=== PATIENT | female | born 1985 | race Caucasian/White ===

== ENCOUNTER 2022-07-04 09:46 | Emergency (ER) | payer SELFPAY ==
--- NOTE | ~2022-07-04 | CT_ITS ---
EXAMINATION: CTA chest PE protocol DATE: 07/04/2022 11:55 INDICATION: Shortness of breath and cough TECHNIQUE: Computed tomography angiography (CTA) of the chest was performed with 100 mL Omnipaque-350 intravenous contrast timed to evaluate the pulmonary arteries. Coronal maximum intensity projection 3D-reconstructions were created by the technologist. The dose-length product (DLP) was 1078.62 mGy-cm . Automated exposure control and iterative reconstruction technique were employed. COMPARISON: None. FINDINGS: There is moderate opacification of the pulmonary arteries. No pulmonary embolus is identifi ed. The lungs are free of acute opacities. No pleural effusion or pneumothorax. Scattered small nodul es of the lungs measuring up to 3 mm likely reflect old granulomatous disease. No pathologically enla rged thoracic lymph nodes are identified. The heart size is normal. A small subcapsular calcification of the liver may reflect prior trauma. There is mild thoracic spondylosis. IMPRESSION: 1. No pulmonary embolism or acute cardiopulmonary abnormality. Reviewed, dictated and finalized at location B.
--- NOTE | ~2022-07-04 | XR_ITS ---
EXAMINATION: XR chest 2V DATE: 07/04/2022 10:16 INDICATION: Shortness of breath and cough TECHNIQUE: PA and lateral views of the chest are obtained. COMPARISON: None available FINDINGS: The lungs are free of acute opacities. No pleural effusion or pneumothorax. The cardiomedia stinal silhouette is normal. The visualized bones and soft tissues are unremarkable. IMPRESSION: 1. No acute cardiopulmonary abnormality. Reviewed, dictated and finalized at location B.
--- NOTE | 2022-07-04 09:52 | ECG_ITS ---
Measurements Intervals Athena Rate: 96 P: 47 MD: 136 QRS: 19 QRSD: 93 T: 3 QT: 373 QTc: 473 Interpretive Statements SINUS RHYTHM MINIMAL ST DEPRESSION [0.025+ mV ST DEPRESSION] NO PREVIOUS ECG AVAILABLE FOR COMPARISON Electronically Signed On 07-04-2022 11:05:47 CDT by Stepan Kebede M.D.
[2022-07-04 10:01] VITALS: BP 129/79; PULSE 88; RESP 23; TEMP 37; O2SAT 99
[2022-07-04 10:06] VITALS: O2SAT 99
[2022-07-04 10:11] LABS: Basophils Absolute Auto 0.1 K/mm3 (0.0-0.1); Basophils Percent Auto 0.9 % (0.2-1.2); Eosinophils Absolute Auto 0.3 K/mm3 (0-0.3); Eosinophils Percent Auto 3.9 % (0-4.4); Hematocrit 44.4 % (37.0-47.0); Hemoglobin 14.7 g/dL (12.0-15.0); Immature Granulocyte Absolute 0.02 K/mm3 (0.00-0.031); Immature Granulocyte Percent A 0.3 % (0-0.5); Lymphocytes Absolute Auto 2.63 K/mm3 (0.9-3.2); Lymphocytes Percent Auto 37.9 % (18.3-44.2); Mean Corpuscular HGB Conc 33.1 g/dl (32-36); Mean Corpuscular Hemoglobin 31.5 pg (26-34); Mean Corpuscular Volume 95.1 fl (80-100); Mean Platelet Volume 11.6 fl (7.4-10.4); Monocytes Absolute Auto 0.4 K/mm3 (0.1-0.6); Monocytes Percent Auto 5.5 % (2.6-8.5); Neutrophils Absolute Auto 3.6 K/mm3 (1.3-6.7); Neutrophils Percent Auto 51.5 % (45.5-73.1); Platelet Count Result 289 k/mm3 (150-375); Red Blood Count 4.67 M/mm3 (4.2-5.4); Red Cell Distribution Width 12.9 % (11.5-14.5); White Blood Count 6.9 K/mm3 (4.5-10.0)
[2022-07-04 10:26] LABS: Alanine Aminotransferase 19 U/L (6-35); Albumin Level 4.7 g/dL (3.5-5.1); Alkaline Phosphatase 60 U/L (38-126); Anion Gap 7 mmol/L (8-16); Aspartate Amino Transferase 21 U/L (14-36); Bilirubin,Total 0.7 mg/dL (0.2-1.3); Blood Urea Nitrogen 11 mg/dL (7-17); Calcium 9.1 mg/dL (8.4-10.2); Carbon Dioxide 29 mmol/L (22-30); Chloride 106 mmol/L (98-107); Estimated CRCL calculation 129 ml/min; Estimated Glomerular Filt Rate > 60; Glucose 127 mg/dL (65-110); Potassium 4.1 mmol/L (3.4-5.0); Sodium 142 mmol/L (137-145)
[2022-07-04 10:38] LABS: Strep Group A RT-PCR DETECTED (Negative)
--- NOTE | 2022-07-04 10:49 | ED.SOB ---
HPI - SOB/Dyspnea General Chief Complaint: Shortness of Breath/Dyspnea Stated Complaint: URI Time Seen by Provider: 07/04/22 10:38 History of Present Illness HPI Narrative: 36-year-old female reports for evaluation of cough, sore throat and dyspnea for 1 week. Patient reports subjective fevers, however has not taken her temperature, denies body aches and chills. Reports the sore throat is intermittent, rates the pain right now 1 out of 10. States the dyspnea only occurs after coughing fits and extensive movement. She denies chest pain, abdominal pain, nausea, vomiting, diarrhea, urinary complaints, ear pain. Reports nasal congestion that was worse a couple of days ago but has since improved. Denies leg swelling or calf pain, history of VTE, hemoptysis, hormone use. Pt endorses smoking 0.5-1 ppd for 20 years. Related Data Allergies Allergy/AdvReac Type Severity Reaction Status Date / Time ondansetron [From Zofran] AdvReac Itching Verified 07/04/22 10:06 Review of Systems Review of Systems: CONSTITUTIONAL: Denies fever, chills EYES: Denies visual changes, redness, or discharge. ENT: See HPI CARDIOVASCULAR: Denies chest pain, palpitations, or edema. RESPIRATORY: See HPI GASTROINTESTINAL: Denies abdominal pain, nausea, vomiting, or diarrhea. GENITOURINARY: Denies dysuria or hematuria. SKIN: Denies rash or itching. MUSCULOSKELETAL: Denies back pain, joint pain, or myalgia. NEUROLOGIC: Denies headache, numbness, dizziness, or weakness. PSYCHIATRIC: Denies anxiety or depression. Exam Narrative: GENERAL: Well-appearing, well-nourished, and in no acute distress. Patient resting comfortably in exam bed. She is pleasant and conversational. Speaking in full sentences. HEAD: Normocephalic, atraumatic. EYES: PERRLA and EOMI. ENT: Nares clear, no rhinorrhea or epistaxis. Mucous membranes moist. Posterior oropharynx erythematous and mildly injected. No exudates, uvular or tonsillar hypertrophy. Bilateral TMs pearly meza nonbulging NECK: Supple. CHEST: Clear to auscultation. No respiratory distress. No wheezes rales or rhonchi HEART: Regular rate and rhythm. No murmur heard. Normal peripheral pulses. ABDOMEN: Soft, nontender, nondistended, normal active bowel sounds. EXTREMITIES: Normal range of motion. No edema. Negative Homans bilaterally SKIN: Warm, dry, no rash. NEURO: No focal deficits. Alert and oriented x3. PSYCH: Normal mood and affect. Course Vital Signs Vital signs: Vital Signs Temperature 98.6 F 07/04/22 10:01 Pulse Rate 88 07/04/22 10:01 Respiratory Rate 23 H 07/04/22 10:01 Blood Pressure 129/79 07/04/22 10:01 Pulse Oximetry 99 07/04/22 10:01 Oxygen Delivery Room Air 07/04/22 10:01 Temperature 98.6 F 07/04/22 10:01 Pulse Rate 72 07/04/22 12:50 Respiratory Rate 20 07/04/22 12:50 Blood Pressure 140/61 07/04/22 12:50 Pulse Oximetry 98 07/04/22 12:50 Oxygen Delivery Room Air 07/04/22 10:06 MDM - SOB/Dyspnea MDM Narrative Medical decision making narrative: 36-year-old female reports for evaluation of sore throat, cough and intermittent dyspnea for 1 week. On exam, patient does not appear ill or toxic, she is speaking in full sentences. She is neurovascularly intact. Lung sounds clear. EKG reveals normal sinus rhythm with a rate of 96. There is evidence of nonspecific ST changes, no prior EKG available for comparison. Patient denies chest pain. Troponin negative. CBC without leukocytosis or anemia. Chemistries unremarkable. Magnesium normal. COVID and flu negative. Strep positive. Chest x-ray without acute cardiopulmonary abnormality. CTA chest obtained without evidence of pulmonary embolism or acute cardiopulmonary abnormality. There are scattered small nodules of the lungs measuring up to 3 mm likely reflect old granulomatous disease. Bedside test negative. Patient received a nebulizer treatment and steroids in the ED. Labs and imaging dis
[2022-07-04 10:53] LABS: Influenza A QL RT-PCR Negative (Negative); Influenza B QL RT-PCR Negative (Negative); RSV RNA, RT-PCR Negative (Negative); SARS-CoV-2 RNA PCR Negative (Negative)
[2022-07-04] MEDS: methylPREDNISolone SOD SUCC 125 MG VIAL IV PUSH (10:59)
[2022-07-04 11:05] VITALS: PULSE 60; RESP 18
[2022-07-04] MEDS: IPRATROPIUM BR 0.02% INH SOLN 0.5 MG/2.5 ML VIAL INHALATION (11:05)
[2022-07-04] MEDS: LEVALBUTEROL NEB 1.25 MG/3 ML INHALATION ×3 (11:05→11:25)
[2022-07-04 11:21] VITALS: BP 127/69; PULSE 67; RESP 19; O2SAT 100
[2022-07-04 11:39] VITALS: PULSE 67; RESP 18
[2022-07-04 11:53] LABS: Troponin I < 0.012 ng/mL (0.000-0.034)
[2022-07-04 12:50] VITALS: BP 140/61; PULSE 72; RESP 20; O2SAT 98
== END 2022-07-04 15:00 | disposition home or self-care (01) ==
PROVIDERS: Emergency Medicine; Emergency Provider Physician Assistant
DX: J02.0 Streptococcal pharyngitis (principal); J40 Bronchitis, not specified as acute or chronic; Z20.822 Contact with and (suspected) exposure to COVID-19
CPT/HCPCS: 36415; 71046; 71275; 80053; 81025; 83735; 84484; 85025; 87637; 87651; 93005; 94640; 96374; 99284; J2930; Q9967

== ENCOUNTER 2023-01-23 10:51 | Emergency (ER) | payer SELFPAY ==
--- NOTE | ~2023-01-23 | CT_ITS ---
EXAMINATION: CT lumbar spine wo con DATE: 01/23/2023 12:44 INDICATION: Back pain. TECHNIQUE: Computed tomography (CT) of the lumbar spine was performed without intravenous contrast. A utomated exposure control and iterative reconstruction technique were employed. The dose-length produ ct was 1379.53 mGy-cm. COMPARISON: None FINDINGS: There is 8 degrees levocurvature of lumbar spine. Vertebral body heights are normal. There is mildly decreased disc height at L3-L4 and L4-L5. The following disc levels are specifically discus sed: L1-L2: The disc does not extend beyond the endplate margin. There is mild bilateral facet joint osteo arthritis. There is no neural foraminal stenosis. There is no central canal stenosis. L2-L3: The disc does not extend beyond the endplate margin. There is moderate right and mild left fac et joint osteoarthritis. There is no neural foraminal stenosis. There is no central canal stenosis. L3-L4: The disc is bulging. There is moderate bilateral facet joint osteoarthritis. There is mild figueroa ateral neural foraminal stenosis. There is no central canal stenosis. L4-L5: The disc is bulging. There is moderate right and severe left facet joint osteoarthritis. There is moderate right and mild left neural foraminal stenosis. There is mild central canal stenosis. L5-S1: The disc does not extend beyond the endplate margin. There is severe bilateral facet joint ost eoarthritis. There is mild bilateral neural foraminal stenosis. There is no central canal stenosis. IMPRESSION: 1. Moderate right neural foraminal stenosis at L4-L5. Otherwise mild lumbar spondylosis. Reviewed, dictated and finalized at location A. [employer] IMPRESSION: 1. Moderate right neural foraminal stenosis at L4-L5. Otherwise mild lumbar spo ndylosis.
[2023-01-23 10:59] VITALS: BP 149/80; PULSE 89; RESP 17; TEMP 36.2; O2SAT 100
[2023-01-23 11:45] LABS: Appearance Urine Cloudy (Clear); Bacteria Urine Rare /hpf; Bilirubin Urine Negative (Negative); Blood Urine Negative (Negative); Color Urine Yellow (Yellow); Glucose Urine UA Negative (Negative); Ketones Urine Negative (Negative); Leukocyte Esterase Ur 2+ LEU/UL (Negative); Nitrate Urine Negative (Negative); Non Pathogenic Casts 0-2; Protein Urine Negative (Negative); Specific Grav Ur 1.019 (1.001-1.035); Squamous Epithelial Cell Urine Moderate /hpf (Few); WBC Urine 21-50 /hpf
[2023-01-23 11:51] LABS: Add Urine Microscopic? YES
--- NOTE | 2023-01-23 13:48 | ED.BACK ---
HPI - Back Pain/Injury General Chief Complaint: Back Pain/Injury Stated Complaint: back and figueroa hip pain Time Seen by Provider: 01/23/23 11:37 Source: patient Mode of arrival: ambulatory Limitations: no limitations History of Present Illness HPI Narrative: Their 7-year-old female complains of lower back pain and bilateral hip pain for the last couple of weeks. Patient denies any known injury. Denies any urinary symptoms such as hematuria, urinary frequency, nausea, vomiting, dysuria. Denies any bowel incontinence, bladder incontinence, saddle paresthesia, radiating pain down the leg. Related Data Allergies Allergy/AdvReac Type Severity Reaction Status Date / Time ondansetron [From Zofran] AdvReac Itching Verified 01/23/23 11:17 Review of Systems Review of Systems: All systems reviewed & are unremarkable except as noted in HPI and below Exam Const: General: cooperative, healthy appearing, comfortable, no acute distress and well developed Orientation/consciousness: patient oriented x3 HENMT: Head: normal to inspection Eyes: General: appearance normal, both eyes and all related structures Resp: Effort & Inspection: normal respiratory effort and able to speak in complete sentences Auscultation: clear to auscultation bilaterally Cardio: Rate: regular rate Rhythm: regular rhythm Heart sounds: S1 normal heart sound present and S2 normal heart sound present Back/Spine/Pelvis: Back: no CVA tenderness Cervical Spine: normal cervical lordosis Thoracic/Lumbar Spine: thoracic and lumbar spine normal to inspection and lumbar spinal tenderness at L4 and at L5 Neuro: General: patient oriented x3 Cranial nerves: Yes CN's II-XII intact bilaterally Speech: normal speech Gait exam (Neuro): Normal gait present Motor exam (neuro): 5/5 motor strength present throughout Course Vital Signs Vital signs: Vital Signs Temperature 97.1 F L 01/23/23 10:59 Pulse Rate 89 01/23/23 10:59 Respiratory Rate 17 01/23/23 10:59 Blood Pressure 149/80 H 01/23/23 10:59 Pulse Oximetry 100 01/23/23 10:59 Oxygen Delivery Room Air 01/23/23 10:59 Temperature 97.9 F 01/23/23 14:12 Pulse Rate 68 01/23/23 14:12 Respiratory Rate 16 01/23/23 14:12 Blood Pressure 127/84 01/23/23 14:12 Pulse Oximetry 100 01/23/23 14:12 Oxygen Delivery Room Air 01/23/23 10:59 MDM - Back Pain/Injury MDM Narrative Medical decision making narrative: 37-year-old female age. Noted. Exam noted tenderness to lumbar region more than expected. Patient jumped with a slight touch. CT lumbar spine ordered. Urine shows possible UTI will treat with Macrobid. CT shows some bulging discs and lumbar spondylosis. Reviewed with patient. Plan to follow-up with the primary care provider for further treatment. Will use ibuprofen or Tylenol as needed for pain for the next week. Return precautions discussed Differential Diagnosis Differential diagnosis: Likely strain of lumbar region and other ( Lumbar back pain, UTI) Medical Records Attestation: I reviewed the patient's medical records. Lab Data Labs: Lab Results 01/23/23 Range/Units 11:31 Urine Color Yellow (Yellow) Urine Appearance Cloudy H (Clear) Urine pH 7.0 (5.0-9.0) Ur Specific [place] 1.019 (1.001-1.035) Urine Protein Negative (Negative) mg/dL Urine Glucose (UA) Negative (Negative) mg/dL Urine Ketones Negative (Negative) mg/dL Ur Blood (Man) Negative (Negative) Urine Nitrate Negative (Negative) Urine Bilirubin Negative (Negative) Urine Urobilinogen 1.0 (<2.0) mg/dL Leukocyte Esterase Rfl 2+ H (Negative) COURT/UL Urine RBC 3-5 H (0-2) /hpf Urine WBC 21-50 H /hpf Ur Squamous Epith Cells Moderate (Few) /hpf Urine Bacteria Rare /hpf Urine Casts 0-2 UCG Bedside Result Negative Reference Range: Negative Imaging Data Radiologist's impression:
[2023-01-23 14:12] VITALS: BP 127/84; PULSE 68; RESP 16; TEMP 36.6; O2SAT 100
== END 2023-01-23 14:13 | disposition home or self-care (01) ==
PROVIDERS: General Practice; Emergency Provider Nurse Practitioner Family
DX: M51.36 Other intervertebral disc degeneration, lumbar region (principal); N39.0 Urinary tract infection, site not specified
CPT/HCPCS: 72131; 81001; 81025; 87086; 87088; 99284

== ENCOUNTER 2023-08-21 08:41 | Emergency (ER) | payer BC, SELFPAY ==
--- NOTE | ~2023-08-21 | CT_ITS ---
EXAMINATION: CT lumbar spine wo con DATE: 08/21/2023 10:23 INDICATION: Midline low back pain TECHNIQUE: Computed tomography (CT) of the lumbar spine was performed without intravenous contrast. A utomated exposure control and iterative reconstruction technique were employed. The dose-length produ ct was 1493.24 mGy-cm. COMPARISON: 01/23/2023 FINDINGS: 2 mm retrolisthesis L4 on L5. Vertebral body heights are normal. Mild disc height loss at L3-L4 and L 4-L5. Moderate bilateral sacroiliac osteoarthritis with prominent subarticular sclerosis but no evide nt erosions. Paravertebral soft tissues are unremarkable. The following disc levels are specifically discussed: T11-T12: The disc does not extend beyond the endplate margin. There is mild bilateral facet joint ost eoarthritis. There is no neural foraminal stenosis. There is no central canal stenosis. T12-L1: The disc does not extend beyond the endplate margin. There is mild left and moderate right fa cet joint osteoarthritis. There is no neural foraminal stenosis. There is no central canal stenosis. L1-L2: The disc does not extend beyond the endplate margin. There is moderate bilateral facet joint o steoarthritis. There is no neural foraminal stenosis. There is no central canal stenosis. L2-L3: The disc does not extend beyond the endplate margin. There is mild left and moderate right fac et joint osteoarthritis. Small amount of ossification along right ligamentum flavum. There is no neur al foraminal stenosis. There is mild central canal stenosis. L3-L4: Disc is bulging. There is moderate bilateral facet joint osteoarthritis. There is mild bilater al neural foraminal stenosis. There is mild central canal stenosis. L4-L5: Disc is bulging. There is moderate right and severe left facet joint osteoarthritis. There is mild left and moderate right neural foraminal stenosis. There is mild central canal stenosis. L5-S1: Disc is bulging. There is moderate right and severe left facet joint osteoarthritis. There is mild bilateral neural foraminal stenosis. There is no central canal stenosis. IMPRESSION: 1. No significant interval change in mild lumbar spondylosis with unchanged moderate neural foraminal stenosis on the right at L4-L5. 2. Moderate bilateral sacral erect osteoarthritis. Reviewed, dictated and finalized at location A. IMPRESSION: 1. No significant interval change in mild lumbar spondylosis with unchanged mod erate neural foraminal stenosis on the right at L4-L5. 2. Moderate bilateral sacral erect osteoarthritis.
[2023-08-21 08:42] VITALS: BP 128/72; PULSE 86; RESP 14; TEMP 36.6; O2SAT 99
[2023-08-21] MEDS: methylPREDNISolone SOD SUCC 125 MG VIAL IM (09:35)
[2023-08-21] MEDS: ACETAMINOPHEN 500 MG TABLET 1000 MG PO (09:35)
[2023-08-21] MEDS: CYCLOBENZAPRINE HCL 10 MG TABLET PO (09:35)
--- NOTE | 2023-08-21 09:51 | ED.BACK ---
HPI - Back Pain/Injury General Chief Complaint: Back Pain/Injury Stated Complaint: BACK PAIN Time Seen by Provider: 08/21/23 09:00 Source: patient Mode of arrival: EMS Limitations: no limitations History of Present Illness HPI Narrative: Patient is a 37-year-old female who presents the ED via EMS with report of lower back pain. Patient reports a history of chronic back pain related to bulging discs. Reports having worsening pain since Thursday. no known injury. Denies any strenuous or heavy lifting. States pain has continued to worsen. She has been taking ibuprofen without improvement. Last took 800 mg at 7:50 a.m. this morning. Radiates slightly down R posterior leg. Denies numbness, saddle anesthesia, weakness, bowel or bladder incontinence, dysuria, hematuria, fevers. Related Data Allergies Allergy/AdvReac Type Severity Reaction Status Date / Time ondansetron Allergy Unknown Unknown Verified 08/21/23 09:20 Review of Systems Review of Systems: CONSTITUTIONAL: Denies fever, chills, or sweats. GASTROINTESTINAL: Denies incontinence, abdominal pain, nausea, vomiting, or diarrhea. GENITOURINARY: Denies Incontinence, dysuria or hematuria. MUSCULOSKELETAL: See HPI. NEUROLOGIC: Denies headache, dizziness, numbness, or weakness. All systems reviewed & are unremarkable except as noted in HPI and below Exam Narrative: GENERAL: mildly uncomfortable appearing, morbidly obese with BMI of 49.1, non-toxic, in no acute distress. HEAD: Normocephalic, atraumatic. RESPIRATORY: Airway patent, respirations nonlabored. Clear to auscultation bilaterally, no rales, rhonchi, wheezing. CARDIOVASCULAR: Regular rate and rhythm without murmurs, rubs, or gallops. MUSCULOSKELETAL: Moves all extremities. No gross deformities. diffuse tenderness throughout the lumbosacral region, some tenderness throughout midline lower spine. No palpable deformities or bony step-offs. Sensation intact. SKIN: Warm, dry, normal color. NEURO: A&O X3. Speech clear. PSYCHIATRIC: Appropriate mood and affect. Normal interaction. Course Vital Signs Vital signs: Vital Signs Temperature 98 F 08/21/23 08:42 Pulse Rate 86 08/21/23 08:42 Respiratory Rate 14 08/21/23 08:42 Blood Pressure 128/72 08/21/23 08:42 Pulse Oximetry 99 08/21/23 08:42 Oxygen Delivery Room Air 08/21/23 08:42 Temperature 98 F 08/21/23 08:42 Pulse Rate 86 08/21/23 08:42 Respiratory Rate 14 08/21/23 08:42 Blood Pressure 128/72 08/21/23 08:42 Pulse Oximetry 99 08/21/23 08:42 Oxygen Delivery Room Air 08/21/23 08:42 MDM - Back Pain/Injury MDM Narrative Medical decision making narrative: Patient presented to ED with several day history of lower back pain. Reported hx of bulging discs. Neurologically intact. No red flag symptoms. No signs of cord compression or cauda equina at this time. CT lumbar spine showing mild lumbar spondylosis, no significant changes since imaging performed in January of last year. Unchanged moderate neural foraminal stenosis on right, consistent with current pain distribution. Urinalysis was obtained and with evidence of possible infection, 2+ LE, 11-20 WBC, 2+ urine bacteria. moderate squamous cells noted. Patient denies urinary complaints at this time. Possible contamination. Will send for culture. Discussed this with patient. She would prefer to start antibiotics now and wait for urine culture. She does admit to history of UTIs. Minimal blood on UA, no concern for kidney stone at this time. Discussed CT imaging findings. Patient is feeling better with supportive therapy. Will refer to neurosurgery for further evaluation. Will discharge with muscle relaxers, Medrol Dosepak, lidocaine patches. Advised to continue Tylenol/ ibuprofen as needed for pain. Patient in agreement with plan. Discussed return precautions. D/C in stable condition. Medical Records Attestation: I reviewed the patient's medical records.
[2023-08-21 10:28] LABS: Appearance Urine Cloudy (Clear); Bacteria Urine 2+ /hpf; Bilirubin Urine Negative (Negative); Blood Urine Negative (Negative); Color Urine Yellow (Yellow); Glucose Urine UA Negative (Negative); Ketones Urine Negative (Negative); Leukocyte Esterase Ur 2+ LEU/UL (Negative); Need Manual Microscopic Reviewed; Nitrate Urine Negative (Negative); Non Pathogenic Casts 0-2; Protein Urine Negative (Negative); Specific Grav Ur 1.026 (1.001-1.035); Squamous Epithelial Cell Urine Moderate /hpf (Few); Urobilinogen Urine 0.2 mg/dL (<2.0); pH Urine 5.5 (5.0-9.0)
[2023-08-21 10:29] LABS: Add Urine Microscopic? YES
[2023-08-21] MEDS: traMADol HCL (*CRX) 50 MG TABLET PO (11:42)
[2023-08-21 11:45] VITALS: BP 140/70; PULSE 80; RESP 16; O2SAT 98
== END 2023-08-21 11:45 | disposition home or self-care (01) ==
PROVIDERS: Emergency Provider Physician Assistant
DX: S39.012A Strain of muscle, fascia and tendon of lower back, initial encounter (principal); M47.816 Spondylosis without myelopathy or radiculopathy, lumbar region; R82.998 Other abnormal findings in urine; M46.1 Sacroiliitis, not elsewhere classified; X58.XXXA Exposure to other specified factors, initial encounter
CPT/HCPCS: 72131; 81001; 81025; 87086; 87088; 96372; 99284; A9270; J2919